=== PATIENT | male | born 1940 | race Caucasian/White ===

== ENCOUNTER → 2022-02-08 | Outpatient (CLI) | payer MEDICARE | LOC: RAD 02-01 08:30 | DX: M17.0 Bilateral primary osteoarthritis of knee (principal); M25.861 Other specified joint disorders, right knee ==

== ENCOUNTER 2024-03-06 13:51 | Emergency (ER) | payer MEDICARE ==
[~2024-03-06] VITALS: Ht 182.9 cm; Wt 80.0 kg
[2024-03-06 14:00] VITALS: BP 148/75
[2024-03-06] MEDS ORDERED: TIMOLOL MALEATE10 ML OS (14:14)
[2024-03-06] MEDS ORDERED: PITAVASTATIN PO (14:14)
[2024-03-06] MEDS ORDERED: LATANOPROST 2.2.5 ML OU (14:14)
[2024-03-06] MEDS ORDERED: LISINOPRIL10 MG PO (14:15)
[2024-03-06] MEDS ORDERED: LIDOCAINE 2% IJ ONE (14:27)
[2024-03-06] MEDS ORDERED: EPINEPHRINE IJ ONE (14:27)
== END 2024-03-06 14:50 | disposition home or self-care (01) ==
LOC: ED 13:51
DX: S09.90XA Unspecified injury of head, initial encounter (principal); S01.81XA Laceration without foreign body of other part of head, initial encounter; S01.111A Laceration without foreign body of right eyelid and periocular area, initial encounter; Z23 Encounter for immunization; W19.XXXA Unspecified fall, initial encounter; Y92.009 Unspecified place in unspecified non-institutional (private) residence as the place of occurrence of the external cause
CPT/HCPCS: 90715

== ENCOUNTER → 2025-01-01 | Outpatient (CLI) | payer MEDICARE ==
[~2025-01-01] MED LIST: LATANOPROST 2.2.5 ML OU; LISINOPRIL10 MG PO; PITAVASTATIN PO; TIMOLOL MALEATE10 ML OS
== END ==
LOC: CARDREHAB 13:47
DX: I47.10 Supraventricular tachycardia, unspecified (principal); R29.818 Other symptoms and signs involving the nervous system
CPT/HCPCS: G0399